=== PATIENT | female | born 1940 | race Caucasian/White ===

== ENCOUNTER 2020-11-24 12:19 | Emergency (ER) | payer MEDICARE, OTHER ==
[~2020-11-24] VITALS: Ht 157.5 cm; Wt 77.1 kg
== END 2020-11-24 15:51 | disposition home or self-care (01) ==
LOC: ER1 12:19
DX: Z23 Encounter for immunization (principal); U07.1 COVID-19; I10 Essential (primary) hypertension
CPT/HCPCS: 93005; 99284; M0243

== ENCOUNTER → 2021-03-19 | Outpatient (CLI) | payer MEDICARE | LOC: MAMO 10:30 | DX: Z12.31 Encounter for screening mammogram for malignant neoplasm of breast (principal) | CPT/HCPCS: 77063; 77067 ==